=== PATIENT | male | born 1990 | race Caucasian/White ===

== ENCOUNTER 2023-04-27 00:30 | Emergency (ER) | payer OTHER ==
[~2023-04-27] VITALS: Ht 170.2 cm; Wt 95.3 kg
[~2023-04-27 00:30] MED LIST: IBUP-1801 PO; SULF-59 PO; TRAM-748 PO
[2023-04-27 01:23] VITALS: BP 111/84
[2023-04-27] MEDS ORDERED: KETOROLAC 30 MG/ML VIAL ONE (02:30)
[2023-04-27] MEDS ORDERED: KETOROLAC 30 MG/ML VIAL IM ONE (02:30)
--- NOTE | 2023-04-27 02:34 | NUR ---
RADIOLOGY AT BEDSIDE FOR PORTABLE XRAY
[2023-04-27] MEDS ORDERED: KETOROLAC 30 MG/ML VIAL IVP ONE (02:35)
[2023-04-27] MEDS ORDERED: HYDROcodone/APAP 5/325 MG 1 TAB TAB PO ONE (02:55)
[2023-04-27] MEDS ORDERED: ACET-8905 PO (02:56)
[2023-04-27] MEDS ORDERED: NAPR-54 PO (02:56)
--- NOTE | 2023-04-27 03:16 | NUR ---
PT. DENIES KNOWING WHERE THE INCIDENT OCCURED AND DOES NOT WISH TO MAKE A POLICE REPORT.
[2023-04-27 03:36] VITALS: BP 109/76
--- NOTE | 2023-04-27 03:37 | NUR ---
Patient discharged with v/s stable. Written and verbal after care instructions given and explained. Patient alert, oriented and verbalized understanding of instructions. Ambulatory with steady gait. All questions addressed prior to discharge. ID band removed. Patient advised to follow up with PMD. Rx of [place], and Naprosyn given. Patient educated on indication of medication including possible reaction and side effects. Opportunity to ask questions provided and answered.
[2023-04-27] MEDS ORDERED: HYDR-5191 PO (03:54)
== END 2023-04-27 03:36 | disposition home or self-care (01) ==
LOC: MED 00:30
DX: S42.291A Other displaced fracture of upper end of right humerus, initial encounter for closed fracture (principal); Z79.899 Other long term (current) drug therapy; Y04.2XXA Assault by strike against or bumped into by another person, initial encounter; Y93.89 Activity, other specified; Y92.89 Other specified places as the place of occurrence of the external cause; Y99.8 Other external cause status
CPT/HCPCS: 73030; 96374; 99283; J1885; Q0092